=== PATIENT | female | born 1945 | race Caucasian/White ===

== ENCOUNTER → 2016-06-29 | Outpatient (CLI) | payer MEDICARE ==
--- NOTE | 2016-06-29 11:41 | REP ---
RIGHT KNEE SERIES: Five views of the right knee performed. There is no acute fracture or dislocation. There is mild diffuse joint space narrowing, subchondral sclerosis, and spurring in all three joint compartments. There is no joint effusion. IMPRESSION: Mild diffuse degenerative changes. Signed by Albert Shine MD 06/29/2016 03:30 P
== END ==
LOC: M SMT 10:23
PROVIDERS: ATTEND Physician Assistant
DX: M25.561 Pain in right knee (principal); M17.11 Unilateral primary osteoarthritis, right knee